=== PATIENT | female | born 1955 | race Caucasian/White ===

== ENCOUNTER 2016-06-03 08:40 | Emergency (ER) | payer OTHER ==
[~2016-06-03] VITALS: Ht 157.5 cm; Wt 68.0 kg
[2016-06-03 08:43] VITALS: BP 130/89
[2016-06-03] MEDS ORDERED: ESTRACE1 MG ORAL (08:49)
[2016-06-03] MEDS ORDERED: Ketorolac 30mg Inj IV ONE (09:15)
[2016-06-03 09:35] LABS: BASOPHILS % (AUTO) 1.1 % (0.0-2.0); EOSINOPHILS % (AUTO) 2.5 % (0.0-3.0); LYMPHOCYTES % (AUTO) 38.8 % (20.0-45.0); MEAN CORPUSCULAR HEMOGLOBIN 29.2 PG (27.0-31.0); MEAN CORPUSCULAR HGB CONC 32.8 G/DL (32.0-36.0); MEAN CORPUSCULAR VOLUME 89 FL (80-99); MEAN PLATELET VOLUME 6.6 FL (6.5-10.1); MONOCYTES % (AUTO) 11.1 % (1.0-10.0); NEUTROPHILS % (AUTO) 46.5 % (45.0-75.0); PLATELET COUNT 311 K/UL (150-450)
[2016-06-03 09:51] LABS: ALANINE AMINOTRANSFERASE 51 U/L (3-33); ALBUMIN/GLOBULIN RATIO 1.8 (1.0-2.7); ANION GAP 15 (5-15); ASPARTATE AMINO TRANSFERASE 18 U/L (5-40); CALCIUM 9.1 mg/dL (8.6-10.2); CARBON DIOXIDE 25 mEQ/L (20-30); CHLORIDE 99 mEQ/L (98-107); CREATININE 0.7 mg/dL (0.5-0.9); GLOMERULAR FILTRATION RATE > 60 mL/min (>60); HEMOLYSIS 3; POTASSIUM 4.2 mEQ/L (3.4-4.9); SODIUM 139 mEQ/L (135-145); TOTAL PROTEIN 6.6 g/dL (6.6-8.7); TROPONIN I < 0.30 ng/mL (<=0.30)
[2016-06-03 10:00] VITALS: BP 145/86
[2016-06-03 10:01] LABS: CKMB < 1.5 ng/mL (< 3.8)
--- NOTE | 2016-06-03 10:29 | Diagnostic Imaging Report ---
Indication: COUGH Technique: One view of the chest Comparison: none Findings: Lungs and pleural spaces are clear. Heart size is normal Impression: No acute process This agrees with the preliminary interpretation provided by the emergency room physician
--- NOTE | 2016-06-03 10:46 | Emergency Room Report ---
History of Present Illness General Chief Complaint: Back Pain-No Injury Source: Patient Present Illness HPI Patient presents emergency department today complaining of one week of cough. Patient states that her cough is not improving. She had fever earlier but now that has resolved. She continues have cough and right-sided upper back thoracic pain. She denies any fever. Denies any nausea vomiting diarrhea chills. Denies any phlegm. Denies any hemoptysis. Symptoms noted to be moderate. Patient denies any dysuria urinary frequency. Denies any abdominal pain. Denies any leg pain leg swelling. Patient states that she is on hormone supplements but has never had a pulmonary embolism be more. Patient has not traveled outside the country or a long flight.No other modifying factors. No other associated signs and symptoms. No other complaints were noted. Allergies: Coded Allergies: No Known Allergies (Unverified , 06/03/16) Patient History Past Medical History: asthma Past Surgical History: hysterectomy Pertinent Family History: none Social History: Reports: smoking - occasional, Denies: alcohol use, drug use Reviewed Nursing Documentation: PMH: Agreed, PSxH: Agreed Nursing Documentation-PMH Past Medical History: No History, Except For Hx Asthma: Yes Review of Systems All Other Systems: negative except mentioned in HPI Physical Exam Vital Signs Date Time Temp Pulse Resp B/P Pulse Ox O2 Delivery O2 Flow Rate FiO2 06/03/16 08:43 97.0 89 14 130/89 95 Room Air Sp02 EP Interpretation: reviewed, normal General Appearance: normal inspection, well appearing, no apparent distress, alert Head: atraumatic Eyes: bilateral eye normal inspection ENT: normal ENT inspection, hearing grossly normal, normal voice Neck: normal inspection, full range of motion, supple, no bony tend Respiratory: normal inspection, lungs clear, normal breath sounds, no respiratory distress, no retraction, no wheezing, other - tender right posterior thorax Cardiovascular #1: regular rate, rhythm, no edema Gastrointestinal: normal inspection, normal bowel sounds, non tender, soft, no guarding, no hernia Genitourinary: no CVA tenderness Musculoskeletal: normal inspection, back normal, normal range of motion Neurologic: normal inspection, alert, responsive, speech normal Psychiatric: normal inspection, judgement/insight normal, mood/affect normal Skin: normal inspection, normal color, no rash Medical Decision Making Diagnostic Impression: Primary Impression: Back pain Qualified Codes: M54.6 - Pain in thoracic spine Additional Impressions: Pleurisy Cough ER Course Patient presents emergency department today complaint chest discomfort. Differential considerations include pneumonia, pneumothorax, CHF, pulmonary embolism, muscle skeletal spasm just to name a few.Given the severity of the patient's presentation I felt this is a highly complex patient. This patient required extensive workup. Patient laboratory workup showed elevated d-dimer. As a result patient car CT chest rule out pulmonary embolism. CT chest was noted to be negative. I felt that the only d-dimer to be secondary to pleurisy. [place] the patient would benefit from antibiotics. .Patient is advised to follow up with primary doctor in 2-3 days and return the emergency room for any worsening symptoms and as needed. Labs Test 06/03/16 09:10 White Blood Count 6.0 K/UL (4.8-10.8) Red Blood Count 4.60 M/UL (4.20-5.40) Hemoglobin 13.4 G/DL (12.0-16.0) Hematocrit 40.9 % (37.0-47.0) Mean Corpuscular Volume 89 FL (80-99) Mean Corpuscular Hemoglobin 29.2 PG (27.0-31.0) Mean Corpuscular Hemoglobin Concent 32.8 G/DL (32.0-36.0) Red Cell Distribution Width 12.0 % (11.6-14.8) Platelet Count 311 K/UL (150-450) Mean Platelet Volume 6.6 FL (6.5-10.1) Neutrophils (%) (Auto) 46.5 % (45.0-75.0) Lymphocytes (%) (Auto) 38.8 % (20.0-45.0) Monocytes (%) (Auto) 11.1 % (1.0-10.0) Eosinophils (%) (Auto) 2.5 % (0.0-3.0) Basophils (%) (Auto) 1.1 % (0.0-2.0) D-Dimer 1032 ng/mL (<500) Sodium Level 139 mEQ/L (135-145) Potassium Level 4.2 mEQ/L (3.4-4.9) Chloride Level 99 mEQ/L (98-107) Carbon Dioxide Level 25 mEQ/L (20-30) Anion Gap 15 (5-15) Blood Urea Nitrogen 16 mg/dL (7-23) Creatinine 0.7 mg/dL (0.5-0.9) Estimat Glomerular Filtration Rate > 60 mL/min (>60) Glucose Level 117 mg/dL (74-106) Calcium Level 9.1 mg/dL (8.6-10.2) Total Bilirubin 0.3 mg/dL (0.0-1.2) Aspartate Amino Transf (AST/SGOT) 18 U/L (5-40) Alanine Aminotransferase (ALT/SGPT) 51 U/L (3-33) Alkaline Phosphatase 70 U/L (35-104) Total Creatine Kinase 20 U/L (26-140) Creatine Kinase MB < 1.5 ng/mL (< 3.8) Creatine Kinase MB Relative Index Troponin I < 0.30 ng/mL (<=0.30) Total Protein 6.6 g/dL (6.6-8.7) Albumin 4.3 g/dL (3.5-5.2) Globulin 2.3 g/dL Albumin/Globulin Ratio 1.8 (1.0-2.7) EKG Diagnostic Results Rate: normal Rhythm: NSR ST Segments: no acute changes Rhythm Strip Diag. Results EP Interpretation: yes Rate: 77 Rhythm: NSR, no PVC's, no ectopy Chest X-Ray Diagnostic Results EP Interpretation: Yes Findings: no consolidation, no effusion, no pneumothorax, no acute cardiopulmonary disease Number of Views: 1 CT/MRI/US Diagnostic Results CT/MRI/US Diagnostic Results : Imaging Test Ordered: CT chest: Negative PE Last Vital Signs Date Time Temp Pulse Resp B/P Pulse Ox O2 Delivery O2 Flow Rate FiO2 06/03/16 10:00 74 16 145/86 98 Room Air 06/03/16 09:50 97.0 Status: improved Disposition: HOME, SELF-CARE Condition: Stable Scripts Amoxicillin* (AMOXIL*) 500 Mg Capsule 500 MG ORAL THREE TIMES A DAY, #21 CAP Prov: NATHALIE DINH M.D. 06/03/16 Albuterol Sulfate* (ALBUTEROL SULFATE MDI*) 8.5 Gm Hfa.aer.ad 2 PUFF INH Q4H Y for cough/wheezing, #1 EA 0 Refills Prov: NATHALIE DINH M.D. 06/03/16 Referrals: NOT CHOSEN [facility]/,REFERRING (PCP) NATHALIE DINH M.D. Jun 03, 2016 10:46
--- NOTE | 2016-06-03 11:01 | Diagnostic Imaging Report ---
ndication: Chest pain and shortness of breath Technique: IV administration nonionic contrast. Spiral acquisitions obtained from the lung bases to the lung apices. Multiplanar and 3-D reconstructions were generated. Total dose length product 842 mGycm. CTDIvol(s) 12, 12, 12, 24 mGy. Dose reduction achieved using automated exposure control Comparison: None Findings: Pulmonary arteries are well opacified. No intraluminal filling defects or other findings to suggest acute pulmonary embolus are demonstrated. No evidence of thoracic aortic aneurysm or dissection. Normal caliber pulmonary arteries. No evidence of right ventricular dilatation. Normal heart size, although there may be mild left ventricular muscular hypertrophy. No acute infiltrates. No effusions, masses, or nodules. No mediastinal or hilar mass or adenopathy. There is a small pericardial effusion. The bones are unremarkable. Unremarkable esophagus. The included upper abdominal anatomy is unremarkable. Impression: Negative for evidence of acute pulmonary embolus or other acute thoracic pathology Small pericardial effusion The CT scanner at [facility] is accredited by the [employer] and the scans are performed using protocols designed to limit radiation exposure to as low as reasonably achievable to attain images of sufficient resolution adequate for diagnostic evaluation.
[2016-06-03] MEDS ORDERED: ALBUTEROL SULF8.5 GM INH (11:43)
[2016-06-03] MEDS ORDERED: AMOXICILLIN500 MG ORAL (11:43)
[2016-06-03 12:00] VITALS: BP 147/86
[2016-06-03 12:05] VITALS: BP 147/86
== END 2016-06-03 12:05 | disposition home or self-care (01) ==
LOC: EMR 09:09
DX: R05 Cough (principal); M54.6 Pain in thoracic spine; R09.1 Pleurisy; Z90.710 Acquired absence of both cervix and uterus; F17.200 Nicotine dependence, unspecified, uncomplicated; J45.909 Unspecified asthma, uncomplicated
CPT/HCPCS: 36415; 71010; 71275; 80053; 82550; 82553; 84484; 85025; 85379; 93005; 96374; 99284; J1885; Q9967